=== PATIENT | female | born 1935 ===

== ENCOUNTER 2021-10-23 09:39 | Outpatient (CLI) | payer OTHER | END 2021-10-23 10:01 | disposition home or self-care (01) | LOC: SONOGRAMA 09:39 | PROVIDERS: ATTEND Pathology Anatomic Pathology & Clinical Pathology | DX: D34 Benign neoplasm of thyroid gland (principal); E07.89 Other specified disorders of thyroid; E04.8 Other specified nontoxic goiter ==